=== PATIENT | female | born 1970 | race Caucasian/White ===

== ENCOUNTER 2017-07-26 09:10 | Emergency (ER) | payer OTHER ==
[~2017-07-26] VITALS: Ht 154.9 cm; Wt 55.8 kg
[2017-07-26] MEDS ORDERED: GILTUSS TR TAB1 EACH (09:26)
[2017-07-26] MEDS ORDERED: DICLOFENAC SODI50 MG PO (10:17)
== END 2017-07-26 10:32 | disposition home or self-care (01) ==
LOC: ER 09:10
DX: S40.012A Contusion of left shoulder, initial encounter (principal); S00.83XA Contusion of other part of head, initial encounter; V49.9XXA Car occupant (driver) (passenger) injured in unspecified traffic accident, initial encounter; Y93.89 Activity, other specified; Y92.488 Other paved roadways as the place of occurrence of the external cause; Y99.8 Other external cause status

== ENCOUNTER 2021-11-26 13:00 | Emergency (ER) | payer OTHER ==
[~2021-11-26] VITALS: Ht 154.9 cm; Wt 54.0 kg
[~2021-11-26 13:00] MED LIST: DICLOFENAC SODI50 MG PO; GILTUSS TR TAB1 EACH
== END 2021-11-26 15:40 | disposition home or self-care (01) ==
LOC: ER 13:00
DX: S60.011A Contusion of right thumb without damage to nail, initial encounter (principal); X58.XXXA Exposure to other specified factors, initial encounter; Y93.9 Activity, unspecified; Y92.9 Unspecified place or not applicable; Y99.9 Unspecified external cause status